=== PATIENT | male | born 1965 | race Caucasian/White ===

== ENCOUNTER 2016-07-19 17:16 | Emergency (ER) | payer OTHER ==
[~2016-07-19] VITALS: Ht 165.1 cm; Wt 104.3 kg
[~2016-07-19 17:16] MED LIST: PREDNISONE5 M1 PO; TRAMADOL HCL50 MG PO; VALIUM5 MG PO
[2016-07-19 18:54] LABS: INFLUENZA A VIRAL ANTIGEN NEGATIVE; INFLUENZA B VIRAL ANTIGEN POSITIVE
[2016-07-19] MEDS ORDERED: LEVAQUIN750 MG PO (19:09)
[2016-07-19] MEDS ORDERED: TAMIFLU75 MG PO (19:09)
[2016-07-19 19:20] VITALS: BP 126/87
== END 2016-07-19 19:25 | disposition home or self-care (01) ==
LOC: EME 17:16
PROVIDERS: Physician Assistant
DX: J11.00 Influenza due to unidentified influenza virus with unspecified type of pneumonia (principal); I10 Essential (primary) hypertension; E78.5 Hyperlipidemia, unspecified
CPT/HCPCS: 71020; 87502; 99281; 99284